=== PATIENT | female | born 1960 | race Caucasian/White ===

== ENCOUNTER 2016-08-14 02:54 | Inpatient (IN) | payer OTHER ==
[~2016-08-14] VITALS: Ht 170.2 cm; Wt 132.0 kg
[~2016-08-14 02:54] MED LIST: ACET-1757 PO; ACET325T21 PO; ACTI260C3 PO; AMOX-291 PO; AMPI1.5V IV; APIX5TAB PO; ASCO100072 PO; ASTR1POW PO; AZIT500T77 PO; BISA10SU65 PR; BLAC540C4 PO; BUPR150T13 PO; CIPR750T PO; COLL30OI TP; CYCL100C2 PO; DOCU-30 PO; EVEN500C2 PO; FERR325T10 PO; FOLI-17 PO; FURO-92 PO; FURO-93 PO; FURO20TA3 PO; HYDR-3138 PO; LACT1TAB3 PO; LEVO25TA4 PO; LISI-170 PO; MAGN64TA9 PO; METO25TA35 PO; METO50TA82 PO; METR500T4 PO; MILK500C PO; MULT-658 PO; MULT-750 PO; OMEP-110 PO; ONDA4TAB7 PO; OXYC-229 PO; OXYC-302 PO; OXYC1TAB7 PO; POLY17PO5 PO; POTA10TA11 PO; POTASSIUM OTC PO; PROGRAF; PYRI100T2 PO; RANI150T8 PO; SENN1TAB7 PO; SODI650T PO; TOLT1TAB4 PO; TURM500C7 PO; VANC1FRO IV; VITA1TAB56 PO; [UNRECOGNIZED DRUG - CODE] PO; [UNRECOGNIZED DRUG - OTHER]; [UNRECOGNIZED DRUG - OTHER] PO; [UNRECOGNIZED DRUG - OTHER] PO
[2016-08-14] MEDS ORDERED: SODIUM CHLORIDE 0.9% 1,000ML IVBOLUS ONE ×2 (03:30→05:00)
[2016-08-14] MEDS ORDERED: RANI150T8 PO (03:55)
[2016-08-14 03:59] LABS: BLOOD UREA NITROGEN 42 mg/dL (7-18)
[2016-08-14 04:06] LABS: DIFF TOTAL CELLS COUNTED 100 CELL DIFF
[2016-08-14 04:08] LABS: ANISOCYTOSIS 1+; VERIFY COUNTS? YES
[2016-08-14 04:10] LABS: IS PT STATUS REG ER OR PRE ER? YES
[2016-08-14] MEDS ORDERED: SODIUM CHLORIDE 0.9% 1,000 ML IV ONE (04:35)
[2016-08-14] MEDS ORDERED: ONDANSETRON 2MG/ML, 2ML IVPush PRN ×2 (05:00→06:30)
[2016-08-14 06:06] VITALS: BP 97/60
[2016-08-14 06:23] VITALS: BP 97/60
[2016-08-14] MEDS ORDERED: PIPERACILLIN/TAZO 3.375 GM in SODIUM CHLORIDE 0.9% 50 ML IV SCH (06:30)
[2016-08-14] MEDS ORDERED: LINEZOLID PMX 600MG/300ML 300 ML IV SCH (06:30)
[2016-08-14] MEDS ORDERED: BISACODYL 10 MG SUPP PR PRN (06:30)
[2016-08-14] MEDS ORDERED: FAMOTIDINE 20 MG TABLET PO PRN (06:30)
[2016-08-14] MEDS ORDERED: POLYETHYLENE GLYCOL 17 GM PACKET PO PRN (06:30)
[2016-08-14] MEDS ORDERED: LABETALOL 5MG/ML, 20ML IVPush PRN (06:30)
[2016-08-14] MEDS ORDERED: DOCUSATE 100 MG CAPSULE PO PRN (06:30)
[2016-08-14] MEDS ORDERED: TRAZODONE 50MG TABLET PO PRN (06:30)
[2016-08-14] MEDS: SODIUM CHLORIDE 0.9% 1,000 ML IV SCH ×2 (06:38→16:15)
[2016-08-14] MEDS: OXYcodone/APAP 10/325MG TABLET PO SCH ×4 (06:38→21:28)
[2016-08-14 08:15] VITALS: BP 84/46
[2016-08-14] MEDS: HEPARIN 5,000 UNITS/ML, 1ML SQ SCH ×3 (08:35→21:28)
[2016-08-14] MEDS: LEVOTHYROXINE 25 MCG TABLET PO SCH (08:36)
[2016-08-14] MEDS: FERROUS SULFATE 325 MG TABLET PO SCH ×3 (08:36→21:28)
[2016-08-14] MEDS: CYCLOSPORINE (SANDIMUNE) 100 MG CAPSULE PO SCH ×2 (08:36→21:20)
[2016-08-14] MEDS: FOLIC ACID 1 MG TABLET PO SCH (08:36)
[2016-08-14] MEDS: OMEPRAZOLE 20 MG CAPSULE.DR PO SCH (08:36)
[2016-08-14] MEDS: TOLTERODINE TARTRATE 1 MG HOMEMEDPO SCH ×2 (08:37→21:21)
[2016-08-14] MEDS: COLLAGENASE CLOSTRIDIUM HIST TP SCH (08:38)
[2016-08-14] MEDS ORDERED: MEROPENEM 500 MG in SODIUM CHLORIDE 0.9% 100 ML IV SCH (10:00)
[2016-08-14 12:25] VITALS: BP 120/69
[2016-08-14 12:56] LABS: PATH.CAST-FLAG NOT PRESENT; SPERM-FLAG NOT PRESENT; SRC-FLAG NOT PRESENT; XTAL-FLAG NOT PRESENT; YLC-FLAG NOT PRESENT
[2016-08-14] MEDS: DAPTOMYCIN 800 MG in SODIUM CHLORIDE 0.9% 100 ML IV SCH (16:15)
[2016-08-14] MEDS: MEROPENEM 1 GM in SODIUM CHLORIDE 0.9% 100 ML IV SCH (18:34)
[2016-08-14 20:00] VITALS: BP 119/74
[2016-08-15 02:00] VITALS: BP_SYST 115; BP_SYST 125; BP_DIAS 74; BP_DIAS 76
[2016-08-15] MEDS: SODIUM CHLORIDE 0.9% 1,000 ML IV SCH ×3 (02:21→17:04)
[2016-08-15] MEDS: MEROPENEM 1 GM in SODIUM CHLORIDE 0.9% 100 ML IV SCH ×3 (02:21→18:19)
[2016-08-15] MEDS: ACETAMINOPHEN 325 MG TABLET PO PRN (02:28)
[2016-08-15] MEDS: HEPARIN 5,000 UNITS/ML, 1ML SQ SCH ×3 (05:09→22:34)
[2016-08-15] MEDS: OXYcodone/APAP 10/325MG TABLET PO SCH ×4 (05:09→22:34)
[2016-08-15 07:25] VITALS: BP 104/70
[2016-08-15] MEDS: TOLTERODINE TARTRATE 1 MG HOMEMEDPO SCH ×2 (09:00→21:00)
[2016-08-15] MEDS ORDERED: ERGOCALCIFEROL 50,000 UNIT CAPSULE PO SCH (09:00)
[2016-08-15] MEDS: COLLAGENASE CLOSTRIDIUM HIST TP SCH (09:00)
[2016-08-15] MEDS: FOLIC ACID 1 MG TABLET PO SCH (09:03)
[2016-08-15] MEDS: FERROUS SULFATE 325 MG TABLET PO SCH ×3 (09:03→21:00)
[2016-08-15] MEDS: OMEPRAZOLE 20 MG CAPSULE.DR PO SCH (09:03)
[2016-08-15] MEDS: LEVOTHYROXINE 25 MCG TABLET PO SCH (09:03)
[2016-08-15] MEDS: CYCLOSPORINE (SANDIMUNE) 100 MG CAPSULE PO SCH (09:03)
[2016-08-15 13:08] VITALS: BP 145/76
[2016-08-15] MEDS: DAPTOMYCIN 800 MG in SODIUM CHLORIDE 0.9% 100 ML IV SCH (15:01)
[2016-08-15 16:03] VITALS: BP 160/74
[2016-08-15] MEDS: LACTOBACILLUS CHEW TABLET PO SCH ×2 (17:04→22:34)
[2016-08-15 20:00] VITALS: BP 142/79
[2016-08-16] MEDS: SODIUM CHLORIDE 0.9% 1,000 ML IV SCH ×4 (01:10→21:00)
[2016-08-16 02:00] VITALS: BP 142/84
[2016-08-16] MEDS: MEROPENEM 1 GM in SODIUM CHLORIDE 0.9% 100 ML IV SCH ×3 (03:34→19:54)
[2016-08-16] MEDS: ACETAMINOPHEN 325 MG TABLET PO PRN (03:52)
[2016-08-16 05:14] LABS: BLOOD UREA NITROGEN 25 mg/dL (7-18)
[2016-08-16] MEDS: OXYcodone/APAP 10/325MG TABLET PO SCH ×4 (06:05→21:00)
[2016-08-16] MEDS: HEPARIN 5,000 UNITS/ML, 1ML SQ SCH ×2 (06:05→14:41)
[2016-08-16 06:55] VITALS: BP 147/80
[2016-08-16] MEDS: TOLTERODINE TARTRATE 1 MG HOMEMEDPO SCH ×2 (09:00→19:54)
[2016-08-16] MEDS: COLLAGENASE CLOSTRIDIUM HIST TP SCH (09:00)
[2016-08-16] MEDS: LEVOTHYROXINE 25 MCG TABLET PO SCH (09:03)
[2016-08-16] MEDS: OMEPRAZOLE 20 MG CAPSULE.DR PO SCH (09:03)
[2016-08-16] MEDS: FERROUS SULFATE 325 MG TABLET PO SCH ×3 (09:03→19:54)
[2016-08-16] MEDS: LACTOBACILLUS CHEW TABLET PO SCH ×3 (09:03→19:54)
[2016-08-16] MEDS: FOLIC ACID 1 MG TABLET PO SCH (09:03)
[2016-08-16 13:05] VITALS: BP 135/82
[2016-08-16] MEDS: DAPTOMYCIN 800 MG in SODIUM CHLORIDE 0.9% 100 ML IV SCH (13:46)
[2016-08-16] MEDS: FLUCONAZOLE 400 MG/200 ML 200 ML IV SCH (14:40)
[2016-08-16 20:14] VITALS: BP 148/74
[2016-08-17 02:02] VITALS: BP 145/85
[2016-08-17] MEDS: HEPARIN 5,000 UNITS/ML, 1ML SQ SCH ×3 (02:55→20:59)
[2016-08-17] MEDS: MEROPENEM 1 GM in SODIUM CHLORIDE 0.9% 100 ML IV SCH ×2 (02:55→11:37)
[2016-08-17] MEDS: SODIUM CHLORIDE 0.9% 1,000 ML IV SCH ×3 (02:55→21:00)
[2016-08-17] MEDS: ACETAMINOPHEN 325 MG TABLET PO PRN (03:03)
[2016-08-17] MEDS: TOLTERODINE TARTRATE 1 MG HOMEMEDPO SCH ×2 (05:28→21:00)
[2016-08-17] MEDS: OXYcodone/APAP 10/325MG TABLET PO SCH ×4 (05:28→21:14)
[2016-08-17 07:17] VITALS: BP 128/81
[2016-08-17] MEDS: COLLAGENASE CLOSTRIDIUM HIST TP SCH (09:00)
[2016-08-17] MEDS: OMEPRAZOLE 20 MG CAPSULE.DR PO SCH (09:20)
[2016-08-17] MEDS: LACTOBACILLUS CHEW TABLET PO SCH ×3 (09:20→20:59)
[2016-08-17] MEDS: FOLIC ACID 1 MG TABLET PO SCH (09:20)
[2016-08-17] MEDS: FERROUS SULFATE 325 MG TABLET PO SCH ×3 (09:20→20:59)
[2016-08-17] MEDS: LEVOTHYROXINE 25 MCG TABLET PO SCH (09:20)
[2016-08-17] MEDS: FLUCONAZOLE 400 MG/200 ML 200 ML IV SCH (14:16)
[2016-08-17 14:20] VITALS: BP 143/88
[2016-08-17] MEDS: DAPTOMYCIN 800 MG in SODIUM CHLORIDE 0.9% 100 ML IV SCH (16:54)
[2016-08-17 19:19] VITALS: BP 147/75
[2016-08-18 01:28] VITALS: BP 132/81
[2016-08-18] MEDS: SODIUM CHLORIDE 0.9% 1,000 ML IV SCH ×2 (03:42→14:00)
[2016-08-18] MEDS: OXYcodone/APAP 10/325MG TABLET PO SCH ×3 (06:19→16:14)
[2016-08-18] MEDS: HEPARIN 5,000 UNITS/ML, 1ML SQ SCH ×2 (06:20→16:15)
[2016-08-18] MEDS: LEVOTHYROXINE 25 MCG TABLET PO SCH (08:30)
[2016-08-18] MEDS: LACTOBACILLUS CHEW TABLET PO SCH ×2 (08:30→16:15)
[2016-08-18] MEDS: OMEPRAZOLE 20 MG CAPSULE.DR PO SCH (08:30)
[2016-08-18] MEDS: TOLTERODINE TARTRATE 1 MG HOMEMEDPO SCH (08:30)
[2016-08-18] MEDS: COLLAGENASE CLOSTRIDIUM HIST TP SCH (08:30)
[2016-08-18] MEDS: FERROUS SULFATE 325 MG TABLET PO SCH ×2 (08:30→16:15)
[2016-08-18] MEDS: FOLIC ACID 1 MG TABLET PO SCH (08:30)
[2016-08-18 08:36] VITALS: BP 136/86
[2016-08-18] MEDS ORDERED: PHARMACOKINETIC CONSULTATION MC ONE (11:00)
[2016-08-18] MEDS ORDERED: VANCOMYCIN PMX 1GM/200ML 200 ML IV ONE (11:00)
[2016-08-18] MEDS ORDERED: PIPERACILLIN/TAZO/PMX 3.375GM 50 ML IV SCH (11:00)
[2016-08-18] MEDS ORDERED: VANCOMYCIN PER PHARMACY MC PRN (11:00)
[2016-08-18] MEDS ORDERED: PHARMACOKINETIC MONITORING MC PRN (11:30)
[2016-08-18] MEDS ORDERED: VANCOMYCIN 2,000 MG in SODIUM CHLORIDE 0.9% 500 ML IV SCH (12:00)
[2016-08-18 14:22] VITALS: BP 128/83
[2016-08-18] MEDS ORDERED: ACID1TAB7 PO (17:38)
[2016-08-18] MEDS ORDERED: DOXY-168 PO (17:38)
[2016-08-18] MEDS ORDERED: CIPR500T3 PO (17:38)
[2016-08-18] MEDS ORDERED: ERGO500017 PO (17:38)
[2016-08-19] MEDS ORDERED: VANCOMYCIN 2,000 MG in SODIUM CHLORIDE 0.9% 500 ML IV SCH (12:00)
== END 2016-08-18 19:19 | disposition home or self-care (01) | DRG 871 ==
LOC: ED 04:04 → EDIP 04:35 → 4EST 05:52 → 4WST 08-17 12:06
PROVIDERS: ADMIT Internal Medicine; ATTEND Internal Medicine
PROC: 02HV33Z Insertion of Infusion Device into Superior Vena Cava, Percutaneous Approach (ICD-10-PCS; principal; 2016-08-17)
PROC: B5181ZA Fluoroscopy of Superior Vena Cava using Low Osmolar Contrast, Guidance (ICD-10-PCS; 2016-08-17)
PROC: B548ZZA Ultrasonography of Superior Vena Cava, Guidance (ICD-10-PCS; 2016-08-17)
DX: A41.9 Sepsis, unspecified organism (principal); R65.21 Severe sepsis with septic shock; L88 Pyoderma gangrenosum; Z68.42 Body mass index [BMI] 45.0-49.9, adult; L03.116 Cellulitis of left lower limb; L97.929 Non-pressure chronic ulcer of unspecified part of left lower leg with unspecified severity; N17.9 Acute kidney failure, unspecified; N18.3 Chronic kidney disease, stage 3 (moderate); I89.0 Lymphedema, not elsewhere classified; I12.9 Hypertensive chronic kidney disease with stage 1 through stage 4 chronic kidney disease, or unspecified chronic kidney disease; E66.01 Morbid (severe) obesity due to excess calories; E88.09 Other disorders of plasma-protein metabolism, not elsewhere classified; E55.9 Vitamin D deficiency, unspecified; I87.2 Venous insufficiency (chronic) (peripheral); J45.909 Unspecified asthma, uncomplicated; E03.9 Hypothyroidism, unspecified; Z86.718 Personal history of other venous thrombosis and embolism; Z88.2 Allergy status to sulfonamides; Z88.7 Allergy status to serum and vaccine; Z88.1 Allergy status to other antibiotic agents; Z82.5 Family history of asthma and other chronic lower respiratory diseases; Z80.1 Family history of malignant neoplasm of trachea, bronchus and lung; Z79.899 Other long term (current) drug therapy
CPT/HCPCS: 36415; 36569; 51702; 71010; 76937; 77001; 80048; 81001; 82040; 82306; 82533; 82607; 82728; 83540; 83550; 83605; 83735; 84145; 84443; 84466; 84484; 85025; 87040; 87070; 87077; 87102; 87103; 87186; 87205; 96360; 96361; J0878; J1450; J1644; J2020; J2185; J2543; J3370; C1751; J7030; J7040; J7502